=== PATIENT | female | born 1935 | race Caucasian/White ===

== ENCOUNTER 2016-02-25 10:02 | Outpatient (CLI) | payer MEDICARE, OTHER ==
[~2016-02-25] VITALS: Ht 160 cm; Wt 75.8 kg
[2016-02-25] MEDS ORDERED: AMIO200T2 PO (10:23)
[2016-02-25] MEDS ORDERED: IRBE300T18 PO (10:23)
[2016-02-25] MEDS ORDERED: CREONC PO (10:23)
[2016-02-25] MEDS ORDERED: DILT240C PO (10:23)
[2016-02-25 10:34] VITALS: BP 168/67
== END 2016-02-25 11:00 ==
LOC: PREOP 10:02
PROVIDERS: ATTEND Podiatrist Foot Surgery
DX: Z01.818 Encounter for other preprocedural examination (principal); Z11.2 Encounter for screening for other bacterial diseases; M20.41 Other hammer toe(s) (acquired), right foot
CPT/HCPCS: 87081

== ENCOUNTER 2016-03-04 06:00 | Day surgery (SDC) | payer MEDICARE, OTHER ==
--- NOTE | 2016-02-25 13:20 | HISTORY AND PHYSICAL ---
DICTATING PHYSICIAN: Dr. Jacobo DATE OF ADMISSION: 03/04/[address] Brunner. 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 ALLERGIC TO MEDICATIONS: 1. SULFA 2. IBUPROFEN 3. NSAIDS 4. ASPIRIN 5. MACROBID 6. ELIQUIS MEDICATIONS NOW ON: 1. Cardizem 280 mg 1 daily. 2. Amiodarone 200 mg 1 daily. 3. Irbesartan 300 mg 1 daily. 4. Quimo 6000 for stomach. The patient is not taking any blood thinner and reaction to Eliquis. The patient states she is now in sinus rhythm. PREVIOUS SURGERIES: 1. Cataract. 2. The patient said she had a stress test and went into Afib. 3. Complete hysterectomy. 4. Right knee replaced. FAMILY HISTORY: Denies asthma, TB, diabetes, heart disease, lung disease, cancer. REVIEW OF SYSTEMS: HEAD: Denies headache, dizziness, fainting. EYES, EARS, NOSE AND THROAT: Denies double vision, ringing in the ears or sore throat. RESPIRATORY: Denies short of breath or wheezing. HEART: Has a previous history of atrial fibrillation now in sinus rhythm. Denies chest pain or shortness of breath. The patient states, she stopped smoking cold turkey in 1985. GASTROINTESTINAL: Appetite good. Denies blood in stools, diarrhea, constipation, ulcer, vomiting. GENITOURINARY: Denies blood, pain, frequency. PHYSICAL EXAMINATION: The patient is a female, in no acute respiratory distress at rest. Pulse 60, blood pressure 160/70, weight 165. EARS: Not inflamed. EYES: No conjunctivitis or icterus. THROAT: Not inflamed. NECK: Thyroid not enlarged. No abnormal cervical lymphadenopathy noted. No carotid bruits. HEART: Regular rate and rhythm rate 60. LUNGS: Clear to auscultation. ABDOMEN: Soft. Liver and spleen nonpalpable. EXTREMITIES: No pretibial edema, foot warm. PLAN: The patient okay to have surgery. Job ID: [id number] Dictated Date: 02/25/2016 11:54:42 Blanking Machine Operator Date: 02/25/2016 13:08:47/paula
[~2016-03-04] VITALS: Ht 160 cm; Wt 75.8 kg
[~2016-03-04 06:00] MED LIST: AMIO200T2 PO; CREONC PO; DILT240C PO; IRBE300T18 PO
[2016-03-04] MEDS ORDERED: ceFAZolin 1,000 MG (ANCEF) VIAL ONE (06:04)
[2016-03-04] MEDS ORDERED: NORMAL SALINE (BAXTER MINI) 50 ML IV ONE (06:05)
--- OUTSIDE RECORDS SUMMARY | 2016-03-04 06:11 | XMS REPORT | Continuity of Care Document ---
Author Author [facility] Organization [facility] Address Unknown Phone Unavailable Care Team Providers Care Mine Promotor Name Role Phone NO, LOCAL PHYSICIAN PCP Unavailable Insurance Providers Payer Name Policy Number Subscriber Name Relationship [employer] [id number] Trish Burgos 18 Self / Same As Patient Enter Insurance Name [id number] Trish Burgos 18 Self / Same As Patient Advance Directives Directive Response Recorded Date/Time Advance Directives No 02/25/16 10:13am Health Care Power of Associate Professor Of Mathematics No 02/25/16 10:13am Resuscitation Status Full Code 02/25/16 10:13am Problems No problem information available. Medications Current Home Medications Medication Dose Units Route Directions Days/Qty Instructions Start Date Diltiazem Hcl 240 Mg 240 Mg Oral Daily 02/25/16 Amiodarone Hcl 200 Mg 200 Mg Oral Daily 02/25/16 Lipase/Amylase/Protease 1 Ea 1 Ea Oral Daily 02/25/16 Irbesartan 300 Mg 300 Mg Oral Daily 02/25/16 Social History Social History Problem Response Recorded Date/Time Alcohol Use Denies Use 02/25/2016 10:13am Recreational Drug Use No 02/25/2016 10:13am Recent Foreign Travel No 02/25/2016 10:12am Recent Infectious Disease Exposure No 02/25/2016 10:12am Sexually Transmitted Disease No 02/25/2016 10:13am HIV/AIDS No 02/25/2016 10:13am Smoking Status Former Smoker 02/25/2016 10:13am Recent Hopitalizations Y AUGUST 1015-AFIB 02/25/2016 10:13am Sexually Transmitted Disease No 02/25/2016 10:13am Query Response Start Date Stop Date Smoking Status Former Smoker Hospital Discharge Instructions No hospital discharge instructions. Plan of Care Discharge Date 02/25/16 11:00am Prescriptions See Medication Section Functional Status No functional status results. Allergies, Adverse Reactions, Alerts Allergen Type Severity Reaction Status Last Updated NSAIDS (Non-Steroidal Anti-Inflammatory Drug) ([id number]) Allergy Severe ANAPHYLAXIS Active 02/25/16 Sulfa (Sulfonamide Antibiotics) (A252648592) Allergy Severe ANAPHYLAXIS Active 02/25/16 Aspirin Allergy Severe ANAPHYLAXIX Active 02/25/16 Ibuprofen Allergy Severe ANAPHYLAXIS Active 02/25/16 Apixaban Allergy Severe RESPIRATORY DISTRESS Active 02/25/16 Immunizations No immunization records. Vital Signs Acute Vital Signs Vital Response Date/Time Pulse Rate (adult) 59 bpm (60 - 90) 02/25/2016 10:34am Respiratory Rate 16 bpm (12 - 24) 02/25/2016 10:34am O2 Sat by Pulse Oximetry 96 % (88 - 100) 02/25/2016 10:34am Blood Pressure 168/67 mm Hg 02/25/2016 10:34am Blood Pressure Mean 100 mm Hg 02/25/2016 10:34am Pain Numeric Pain Scale 0-No Pain 02/25/2016 10:34am Height (Feet) 5 feet 02/25/2016 10:06am Height (Inches) 3.00 inches 02/25/2016 10:06am Height (Calculated Centimeters) 160.157378 cm 02/25/2016 10:06am Weight (Pounds) 167 pounds 02/25/2016 10:06am Weight (Ounces) 3.0 oz 02/25/2016 10:06am Weight (Calculated Grams) 20035.98 gm 02/25/2016 10:06am Weight (Calculated Kilograms) 75.962527 kilograms 02/25/2016 10:06am Calculated BMI 29.6 02/25/2016 10:06am Results No known relevant diagnostic tests, laboratory data and/or discharge summary. Procedures No known history of procedures. Encounters Encounter Location Arrival/Admit Date Discharge/Depart Date Attending Provider Departed Clinic [facility] 02/25/16 10:02am 02/25/16 11: 00am CHELSEY EASLEY DPM
--- OUTSIDE RECORDS SUMMARY | 2016-03-04 06:11 | XMS REPORT | Continuity of Care Document ---
Author Author [facility] Organization [facility] Address Unknown Phone Unavailable Care Team Providers Care Orthodontist Assistant Name Role Phone NO, LOCAL PHYSICIAN PCP Unavailable Insurance Providers Payer Name Policy Number Subscriber Name Relationship [employer] [id number] Trish Burgos 18 Self / Same As Patient Enter Insurance Name [id number] Trish Burgos 18 Self / Same As Patient Advance Directives Directive Response Recorded Date/Time Advance Directives No 02/25/16 10:13am Health Care Power of Alarm Mechanism Adjuster No 02/25/16 10:13am Resuscitation Status Full Code [...] Status Last Updated NSAIDS (Non-Steroidal Anti-Inflammatory Drug) ([id number]) Allergy Severe ANAPHYLAXIS Active 02/25/16 Sulfa (Sulfonamide Antibiotics) ([id number]) Allergy Severe ANAPHYLAXIS Active 02/25/16 Aspirin Allergy [...] 3.00 inches 02/25/2016 10:06am Height (Calculated Centimeters) 160.818825 cm 02/25/2016 10:06am Weight (Pounds) 167 pounds 02/25/2016 10:06am Weight (Ounces) 3.0 oz 02/25/2016 10:06am Weight (Calculated Grams) 82821.98 gm 02/25/2016 10:06am Weight (Calculated Kilograms) 75.309088 kilograms 02/25/2016 10:06am Calculated BMI 29.6 02/25/2016 10:06am Results No known relevant diagnostic tests, laboratory data and/or discharge summary. Procedures No known history of procedures. Encounters Encounter Location Arrival/Admit Date Discharge/Depart Date Attending Provider Departed Clinic [facility] 02/25/16 10:02am 02/25/16 11: 00am CHELSEY EASLEY DPM
[2016-03-04 06:34] VITALS: BP 186/69
[2016-03-04] MEDS ORDERED: ONDANSETRON 4 MG/2 ML (SDV) Z0FRAN ONE (06:43)
[2016-03-04] MEDS ORDERED: LIDOCAINE PF 2% 10 ML (XYLOCAINE) AMP ONE (06:43)
[2016-03-04] MEDS ORDERED: proPOfol 200 MG/20 ML (DIPRIVAN) VIAL IV ONE (06:43)
[2016-03-04] MEDS ORDERED: DEXAMETHASONE PF 10 MG/ML (DECADRON) VIAL ONE (06:43)
[2016-03-04] MEDS ORDERED: fentaNYL INJECTION 100 MCG/2 ML AMP ONE (06:43)
[2016-03-04] MEDS ORDERED: MEPIVACAINE (CARBOCAINE) 2% 50 ML VIAL ONE (07:05)
[2016-03-04] MEDS ORDERED: BUPIVACAINE 0.5% 30 ML (SENSORCAINE) VIAL ONE (07:05)
[2016-03-04] MEDS ORDERED: LACTATED RINGERS 1,000 ML IV PRN (07:19)
[2016-03-04] MEDS ORDERED: CATHETER FLUSH 10 ML SYR IV PRN (07:30)
[2016-03-04] MEDS ORDERED: ceFAZolin 1 GM/NS 50 ML IVPB IV ONE ×2 (07:30)
[2016-03-04] MEDS ORDERED: SEVOFLURANE (ULTANE) 15 ML INHAL SOLN ONE (08:53)
[2016-03-04] MEDS ORDERED: LACTATED RINGERS 1,000 ML IV ONE (08:54)
--- NOTE | 2016-03-04 09:21 | Progress Note-Pre Operative ---
Pre-Operative Progress Note H&P Reviewed The H&P was reviewed, patient examined and no changes noted. Date H&P Reviewed: Mar 04, 2016 Time H&P Reviewed: 07:30 Pre-Operative Diagnosis: hammer toes 2-5 right foot CHELSEY EASLEY DPCecilia Mar 04, 2016 9:21 am
--- NOTE | 2016-03-04 09:23 | Progress Note-Post Operative ---
Post-Operative Progess Note Tracer Clerk none Pre-Operative Diagnosis hammer toes 2-5 right foot Post-Operative Diagnosis same Post-Op Procedure Note Date of Procedure: Mar 04, 2016 Name of Procedure: CAT with PIPJ fusion 2,3,4 right CAT 5th digit right foot. Procedure Note/Findings As usual Packing: none CHELSEY EASLEY DPM Mar 04, 2016 9:23 am
[2016-03-04] MEDS ORDERED: MEPERIDINE (DEMEROL) INJ 50 MG/ML IVP PRN (09:30)
[2016-03-04] MEDS ORDERED: morphine INJ 10 MG/ML 1ML (SYR OR VIAL) IVP PRN (09:30)
--- NOTE | 2016-03-04 09:39 | Anesthesia-General Post-Op ---
General Patient Condition Mental Status/LOC: Same as Preop Cardiovascular: Satisfactory Nausea/Vomiting: Absent Respiratory: Satisfactory Pain: Controlled Complications: Absent Post Op Complications Complications None Follow Up Care/Instructions Patient Instructions None needed. Anesthesia/Patient Condition Patient Condition Patient is doing well, no complaints, stable vital signs, no apparent adverse anesthesia problems. No complications reported per nursing. [place] [facility]: VERONICA Nix DO Mar 04, 2016 09:39
[2016-03-04 10:15] VITALS: BP 159/61
--- NOTE | 2016-03-04 10:26 | Diagnostic Imaging Report ---
EXAMINATION: Two views of the right foot. INDICATION: Postoperative. FINDINGS: 3 K wires are introduced through the interphalangeal joints of the second, third, and fourth toe and normal alignment is seen. Postoperative changes are noted with the soft tissues partially obscured by dressing seen. There is a bipartite medial sesamoid bone. IMPRESSION: K wire fusion of the interphalangeal joints at the second, third, and fourth digits visualized. Dictated by: Dictated on workstation # [id number]
[2016-03-04 10:45] VITALS: BP 158/64
--- NOTE | 2016-03-04 10:51 | Discharge Instructions ---
Discharge Instructions Discharge Medications New, Converted or Re-Newed RX: Call to Patients Pharmacy Patient Instructions Patient Instructions 1. Follow up in office in 2 weeks. 2. Diet as tolerated. 3. Activity as tolerated. Activity & Diet Activity as Tolerated: Yes CHELSEY EASLEY DPM Mar 04, 2016 10:51 am
[2016-03-04] MEDS ORDERED: HYDR-3730 PO (10:57)
[2016-03-04 11:15] VITALS: BP 154/57
[2016-03-04 11:20] VITALS: BP 154/57
--- NOTE | 2016-03-04 13:15 | OPERATIVE REPORT ---
PROCEDURE PHYSICIAN: CHELSEY EASLEY DATE OF PROCEDURE: 03/04/2016 PREOPERATIVE DIAGNOSIS: Hammer toes 2 through 5 right foot. POSTOPERATIVE DIAGNOSIS: Hammer toes 2 through 5 right foot. NAME OF OPERATION: Capsulotomy arthroplasty and tenotomy 2nd through 5th toe with PIPJ fusion and K wire fixation, 2, 3 and 4. DESCRIPTION OF OPERATION: With the patient in the supine position, having been effected by general anesthetic, sterile prep and drape were performed and a Adriano bandage was applied at the level of the metatarsus. A 3 cm curvilinear incision was made over the digit starting just distal to the MPJ and extended onto the digit just past the PIPJ. This incision was deepened with sharp and blunt dissection. Vital structures identified and retracted. Medial and lateral collateral ligaments were severed and the PIPJ was incised in a transverse fashion. Dorsal long tendon reflected proximally. Articular cartilage was removed from the base of the distal phalanx. The head of the proximal phalanx one smooth 0.045 K wire was then retrograded through the end of the digit and again retrograded into the proximal phalanx not encroaching on the MPJ. There was excellent alignment noted. The dorsal long tendon was reapproximated with 1 horizontal mattress suture of 4-0 Vicryl. Skin and superficial fascia were closed as a unit with continuous lock suture of 4-0 Vicryl. Jergens pinball was then placed on the end of the K wire to prevent retrograde invasion of the toe. This procedure was performed equally on the 2nd, 3rd and 4th digits. A 2 cm linear incision was made over the dorsal aspect of the 5th digit second lateral semielliptical incision made. The incision was deepened with sharp and blunt dissection. The interposing skin wedge was resected in toto. The knife was then placed at the plantar aspect of the PIPJ. The dorsal long tendon of the flexor of the 5th digit was tenotomized and the plantar capsule at the PIPJ was also tenotomized to allow correction of contraction PIPJ. This incision was closed with continuous lock suture of 4-0 Prolene. The surgical sites were infiltrated with a 50/50 mixture of 0.5% Marcaine plain and 1% Carbocaine plain. Tourniquet was released. Blood flow return to the digits was within normal limits sterile corrective compressive wet-to-dry Betadine dressing were applied and carried above the level of the right ankle, covered with circular Coban. The patient tolerated the procedure well with minimal blood loss. She left the OR to [facility] in apparent good condition. She is to be seen in the office in 2 weeks for appropriate follow-up care. She was given an Rx for Lortab 7.5 number 28, one q.4-6 hours p.r.n. foot pain. Job ID: [id number] Dictated Date: 03/04/2016 11:11:46 Pyrotechnist Date: 03/04/2016 13:05:56 / paula
== END 2016-03-04 11:20 | disposition home or self-care (01) ==
LOC: SDC 06:00
PROVIDERS: ATTEND Podiatrist Foot Surgery
DX: M20.41 Other hammer toe(s) (acquired), right foot (principal)
CPT/HCPCS: 73620